=== PATIENT | female | born 1985 ===

== ENCOUNTER 2025-08-09 07:00 | Day surgery (SDC) | payer OTHER ==
[2025-08-01 13:42] VITALS: BP 123/78
[~2025-08-09] VITALS: Ht 167.6 cm; Wt 142.0 kg
[~2025-08-09 07:00] MED LIST: COZAAR25 MG PO; DILTIAZEM 24HR120 M1 PO; EFFEXOR XR75 MG PO; HORIZANT300 MG PO; RESTORIL30 M1 PO; TOPROL XL100 M1 PO; TRAZODONE HCL150 MG PO
[2025-08-09] MEDS ORDERED: METRONIDAZOLE/SODIUM CHLORIDE 500 MG/100 ML PIGGYBACK IV ONE (07:52)
[2025-08-09] MEDS ORDERED: DIBUCAINE 30 GM TUBE ONE (09:08)
[2025-08-09] MEDS ORDERED: BUPIVACAINE HCL/MPF 0.5% 30ML VIAL ONE (09:08)
[2025-08-09] MEDS ORDERED: POVIDONE-IODINE 118 ML BOTT TOP ONE (09:08)
[2025-08-09] MEDS ORDERED: LIDOCAINE HCL 1%/EPINEPHRINE 20ML VIAL IJ ONE (09:09)
[2025-08-09] MEDS ORDERED: HEMOSTATIC MATRIX 1 KIT KIT TOP ONE (09:09)
[2025-08-09] MEDS ORDERED: OXYCODONE HCL5 MG PO (10:13)
[2025-08-09] MEDS ORDERED: TAMSULOSIN HCL 0.4 MG CAP PO ONE ×2 (10:15→13:15)
[2025-08-09] MEDS ORDERED: KETOROLAC TROMETHAMINE 30 MG VIAL ONE (10:22)
[2025-08-09] MEDS ORDERED: ACETAMINOPHEN 500 MG GEL..CAP PO ONE (12:31)
== END 2025-08-09 15:05 | disposition home or self-care (01) ==
LOC: CIR.AMB 07:00
PROVIDERS: ATTEND Surgery
DX: K64.2 Third degree hemorrhoids (principal); K64.4 Residual hemorrhoidal skin tags; K62.5 Hemorrhage of anus and rectum; K62.89 Other specified diseases of anus and rectum